=== PATIENT | female | born 1945 | race Caucasian/White ===

== ENCOUNTER 2020-07-18 10:33 | Emergency (ER) | payer MEDICARE, OTHER ==
[2020-07-18] MEDS ORDERED: COLC0.6T67 PO (11:03)
[2020-07-18] MEDS ORDERED: FAMO40TA7 PO (11:03)
[2020-07-18] MEDS ORDERED: LEVO50TA PO (11:03)
== END 2020-07-18 12:29 | disposition home or self-care (01) ==
DX: R07.89 Other chest pain (principal); R20.2 Paresthesia of skin; K21.9 Gastro-esophageal reflux disease without esophagitis; Z79.899 Other long term (current) drug therapy